=== PATIENT | male | born 2000 | race Two or more races ===

== ENCOUNTER 2023-05-09 15:26 | Emergency (ER) | payer OTHER ==
[~2023-05-09] VITALS: Ht 177.8 cm; Wt 77.3 kg
[2023-05-09 15:54] VITALS: TEMP 98.2
[2023-05-09 16:52] LABS: APPEARANCE,URINE CLEAR (CLEAR); BILIRUBIN,URINE NEGATIVE (NEGATIVE); GLUCOSE, URINE (UA) NEGATIVE (NEGATIVE); KETONES,URINE NEGATIVE (NEGATIVE); LEUKOCYTE ESTERASE ,URINE NEGATIVE (NEGATIVE); NITRATE,URINE NEGATIVE (NEGATIVE); OCCULT BLOOD,URINE NEGATIVE (NEGATIVE); PROTEIN,URINE NEGATIVE (NEGATIVE); SPECIFIC GRAVITIY, URINE 1.007 (1.003-1.030); UROBILINOGEN,URINE <=1.0 mg/dL (<=1.0)
[2023-05-09] MEDS ORDERED: LIDOCAINE/PF 1% 2 ML VIAL IM ONE (22:45)
[2023-05-09] MEDS ORDERED: DOXYCYCLINE HYCLATE 100 MG TABLET PO ONE (22:45)
[2023-05-09] MEDS ORDERED: CefTRIAXone SODIUM 1 GM/VIAL IM ONE (22:45)
[2023-05-09 23:20] VITALS: BP 126/79; PULSE 79; RESP 16
== END 2023-05-09 23:20 ==
LOC: EMS 15:26
DX: N50.89 Other specified disorders of the male genital organs (principal)
CPT/HCPCS: 99283; 81003; 87491; 87591; 96372; J0696; J3490